=== PATIENT | female | born 1990 | race African-American/Black ===

== ENCOUNTER 2018-07-15 15:29 | Emergency (ER) | payer BC ==
--- NOTE | 2018-07-15 15:52 | PDOC ---
History of Present Illness - General Stated Complaint: PAIN Time Seen by Provider: 07/15/18 15:42 History Source: Patient
[2018-07-15 15:58] VITALS: BP 143/93; PULSE 84; TEMP 98.2; BMI 39.1
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
[2018-07-15] MEDS ORDERED: METOCLOPRAMIDE HCL INJECTION 10 MG/2 ML VIAL IVPB ONE (16:43)
--- NOTE | 2018-07-15 16:43 | PDOC ---
History of Present Illness - General Chief Complaint: Headache Stated Complaint: PAIN Time Seen by Provider: 07/15/18 15:42 History Source: Patient - History of Present Illness Severity: Yes: severe Past History - Past Medical History Allergies/Adverse Reactions: Allergies Allergy/AdvReac Type Severity Reaction Status Date / Time No Known Allergies Allergy Verified 07/15/18 17:05 Home Medications: Ambulatory Orders Acetaminophen [Tylenol -] 1,000 mg PO Q6H #100 tablet 07/15/18 Amoxicillin - [Amoxicillin 875mg Tablet -] 875 mg PO BID #14 tab 07/15/18 Duloxetine HCl [Cymbalta] 30 mg PO DAILY 07/15/18 [place] Carbonate [Eskalith -] 600 mg PO HS 07/15/18 COPD: No - Immunization History Immunization Up to Date: Yes - Suicide/Smoking/Psychosocial Hx Smoking History: Never smoked Hx Alcohol Use: No Drug/Substance Use Hx: No Review of Systems - Review of Systems Constitutional: No: Fever ABD/GI: Yes: Nausea, Vomiting Neurological: Yes: Headache, Dizziness *Physical Exam - Vital Signs Last Vital Signs Temp Pulse Resp BP Pulse Ox 98.2 F 84 15 143/93 100 07/15/18 15:55 07/15/18 15:55 07/15/18 15:55 07/15/18 15:55 07/15/18 15:55 - Physical Exam General Appearance: Yes: Appropriately Dressed, Mild Distress HEENT: positive: Normal Voice Neck: positive: Supple Respiratory/Chest: negative: Respiratory Distress Integumentary: positive: Dry, Warm Neurologic: positive: criminal investigator II-XII NML intact, Fully Oriented, Alert, Normal Mood/ Affect, Motor Strength 5/5 Moderate Sedation - Procedure Monitoring Vital Signs: Procedure Monitoring Vital Signs Temperature 98.2 F 07/15/18 15:55 Pulse Rate 84 07/15/18 15:55 Respiratory Rate 15 07/15/18 15:55 Blood Pressure 143/93 07/15/18 15:55 O2 Sat by Pulse Oximetry (%) 100 07/15/18 15:55 Medical Decision Making - Medical Decision Making 07/15/18 16:42 28-year-old female, denies any past medical history, here with headache. Patient states since this a.m. she's had severe diffuse headache radiating into L side of face, unable to describe, but states this is the worst headache of her life. Also reports multiple episodes of nausea, vomiting, some dizziness, blurry vision and feels "dehydrated" per patient. Has had headaches in the past but nothing this severe. Took Aleve today with no relief See exam SOTO x 1 day No e/o serious pathology, exam unremarkable CTH/facial bones ordered from triage and pending -upreg -pain control -reassess 07/15/18 19:39 Patient significantly improved with meds, here. States headache has since resolved. CT facial bones read as chronic sinusitis with possible acute sinusitis to left maxillary sinus. No uri sxs, f/c at this time. Patient does report possible sinus infections in the past. Will dc with pain control and amoxicillin. To follow up with PMD *DC/Admit/Observation/Transfer Diagnosis at time of Disposition: Headache Qualifiers: Headache type: unspecified Headache chronicity pattern: acute headache Intractability: not intractable Qualified Code(s): R51 - Headache - Discharge Dispostion Disposition: HOME Condition at time of disposition: Improved - Prescriptions Prescriptions: Acetaminophen [Tylenol -] 1,000 mg PO Q6H #100 tablet Amoxicillin - [Amoxicillin 875mg Tablet -] 875 mg PO BID #14 tab - Referrals - Patient Instructions Printed Discharge Instructions: Sinusitis Additional Instructions: Your facial CT reveals possible acute sinus infection. Take medications as prescribed and follow-up with your PMD - Post Discharge Activity Forms/Work/School Notes: Back to Work
[2018-07-15] MEDS ORDERED: KETOROLAC TROMETHAMINE 30 MG/1 ML VIAL IVPUSH ONE (16:44)
[2018-07-15] MEDS ORDERED: SODIUM CHLORIDE 1,000 ML IV STA (16:45)
== END 2018-07-15 19:39 | disposition home or self-care (01) ==
LOC: JER 15:29
DX: R51 Headache (principal); W22.8XXA Striking against or struck by other objects, initial encounter; Y93.89 Activity, other specified; Y92.013 Bedroom of single-family (private) house as the place of occurrence of the external cause; Y99.8 Other external cause status
CPT/HCPCS: 70450-TC; 70486-TC; 84703; 99282-25; J7030

== ENCOUNTER 2018-09-19 12:15 | Emergency (ER) | payer BC ==
[2018-09-19 12:23] VITALS: BP 152/84; PULSE 84; TEMP 97.8; BMI 39.1
[2018-09-19] MEDS ORDERED: METOCLOPRAMIDE HCL INJECTION 10 MG/2 ML VIAL IM ONE (12:38)
[2018-09-19] MEDS ORDERED: ACETAMINOPHEN 325 MG TABLET (FP) PO ONE (12:38)
[2018-09-19] MEDS ORDERED: METOCLOPRAMIDE HCL INJECTION 10 MG/2 ML VIAL ONE (12:41)
[2018-09-19] MEDS ORDERED: ACETAMINOPHEN 325 MG TABLET (FP) ONE (12:41)
--- NOTE | 2018-09-19 12:47 | PDOC ---
History of Present Illness - General Chief Complaint: Injury Stated Complaint: FALL Time Seen by Provider: 09/19/18 12:22 History Source: Patient Exam Limitations: No Limitations Past History - Past Medical History Allergies/Adverse Reactions: Allergies Allergy/AdvReac Type Severity Reaction Status Date / Time No Known Allergies Allergy Verified 09/19/18 12:23 Home Medications: Ambulatory Orders Duloxetine HCl [Cymbalta] 30 mg PO DAILY 07/15/18 [place] Carbonate [Eskalith -] 600 mg PO HS 07/15/18 COPD: No - Immunization History Immunization Up to Date: Yes - Suicide/Smoking/Psychosocial Hx Smoking History: Smoker current status UNK Have you smoked in the past 12 months: No Information on smoking cessation initiated: No Hx Alcohol Use: No Drug/Substance Use Hx: No *Physical Exam - Vital Signs Last Vital Signs Temp Pulse Resp BP Pulse Ox 97.8 F 84 18 152/84 100 09/19/18 12:21 09/19/18 12:21 09/19/18 12:21 09/19/18 12:21 09/19/18 12:21 - Physical Exam General Appearance: No: Apparent Distress HEENT: positive: EOMI, IRA, Other (minimal swelling along lateral R eyebrow, no ecchymosis, no swelling of scalp) Neck: positive: Supple. negative: Tender lateral, Tender midline Respiratory/Chest: positive: Lungs Clear, Normal Breath Sounds. negative: Respiratory Distress Cardiovascular: positive: Regular Rhythm, Regular Rate, S1, S2. negative: Murmur Gastrointestinal/Abdominal: positive: Normal Bowel Sounds, Soft Extremity: positive: Other (no trauma of extremities) Neurologic: positive: fermenter II-XII NML intact, Fully Oriented, Alert, Normal Mood/ Affect, Motor Strength 5/5 Medical Decision Making - Medical Decision Making 28 y/o F hx of asthma presents with R sided SOTO s/p mechanical fall. States was sprinting and tripped, hitting R side of head against sidewalk. Denies LOC. + mild nausea. Denies visual/gait changes, dizziness, vomiting, numbness/tingling/ weakness of extremities, neck pain Not suspicious for ICB; no sign of basilar skull fracture Plan: Tylenol, Reglan 09/19/18 12:43 *DC/Admit/Observation/Transfer Diagnosis at time of Disposition: Headache Qualifiers: Headache type: post-traumatic Headache chronicity pattern: acute headache Intractability: not intractable Qualified Code(s): G44.319 - Acute post- traumatic headache, not intractable - Discharge Dispostion Disposition: HOME Condition at time of disposition: Stable Decision to Admit order: No - Referrals - Patient Instructions Printed Discharge Instructions: DI for Post-traumatic Headache Additional Instructions: Thank you for choosing [facility]. It was a pleasure taking care of you. You were seen here for headache after fall Please follow-up with your doctor in 2-3 days Return to the Emergency Department if your symptoms worsen or persist, you have severe headache, vomiting, dizziness, weakness of extremities (arms and/or legs) , changes in vision or walking or other concerning symptoms. - Post Discharge Activity
== END 2018-09-19 13:15 | disposition home or self-care (01) ==
LOC: JERFT 12:15
PROC: 3E023GC Introduction of Other Therapeutic Substance into Muscle, Percutaneous Approach (ICD-10-PCS; principal; 2018-09-19)
DX: G44.319 Acute post-traumatic headache, not intractable (principal); J45.909 Unspecified asthma, uncomplicated; W18.39XA Other fall on same level, initial encounter; Y93.89 Activity, other specified; Y92.89 Other specified places as the place of occurrence of the external cause
CPT/HCPCS: 99281-25